=== PATIENT | female | born 1985 | race Caucasian/White ===

== ENCOUNTER 2017-04-16 19:00 | Emergency (ER) | payer MEDICAID ==
[~2017-04-16] VITALS: Ht 167.6 cm; Wt 44.0 kg
[2017-04-16 19:05] VITALS: Ht 167.6 cm; Wt 44.0 kg
[2017-04-16] MEDS ORDERED: ONDANSETRON (ODT) 4 MG TAB ODT STA (19:31)
--- NOTE | 2017-04-16 19:31 | ERD ---
ER Documentation Chief Complaint Date/Time DATE: 04/16/17 TIME: 19:23 Chief Complaint weakness today after being in sun. "felt like passing out" HPI 31-year-old female presents emergency department for multiple complaints including weakness, nausea and vomiting, feels like passing out. Stated that she was at [email or web address], when she felt like she is going to pass out, vomited nonbilious and nonbloody vomitus 3 times. Went home after this for a few minutes then went to an urgent care and she was told to come to the emergency department for reevaluation. Stated that she just got a new job and is still adjusting. Stated that she did not eat well this morning. She also added that mother advises her to come here to the emergency department for her blood sugar to be checked. Denies headache, loss of consciousness, dizziness, blurry vision, changes in vision, photophobia, facial pain, ear pain, throat pain, difficulty swallowing, neck pain, shoulder pain, chest pain, cough, shortness of breath and difficulty breathing when lying flat, hemoptysis, abdominal pain, back pain, loss of appetite, hematochezia, diarrhea, constipation, urinary symptoms, , the possibility of being , bladder and bowel incontinences, extremity tenderness, calf pain, numbness or tingling sensation, difficulty walking, recent travel, recent long travel, recent exposure to illness, recent antibiotic use in the last 3 months, fever, chills. Allergy: No known drug allergies. PMH: Factor V Leiden diagnosed in 2006. Pulmonary embolism 2. Stated she was previously on Coumadin, then her primary care physician stopped it. Family medical history: Denies. AO LMP: Irregular. Patient stated that she has an IUD. Medications: Surgery: Denies. Primary Social History: Denies family history of stroke, heart attack before age 50. Denies smoking cigarettes. Occasional drinks alcoholic beverages. Admits use of medical marijuana. Denies use of illegal drugs. ROS All systems reviewed and are negative except as per history of present illness. Medications Home Meds Active Scripts Meclizine Hcl* (Antivert*) 12.5 Mg Tab, 12.5 MG PO Q8 Y for DIZZINESS, #20 TAB Prov:OMA BAIG 04/16/17 Ondansetron Hcl* (Zofran*) 4 Mg Tablet, 4 MG PO Q8H Y for NAUSEA AND/OR VOMITING , #15 TAB Prov:OMA BAIG 04/16/17 Allergies Allergies: Coded Allergies: No Known Allergy (Unverified , 04/16/17) PMhx/Soc Medical and Surgical Hx: pt denies Medical Hx, pt denies Surgical Hx History of Surgery: No Anesthesia Reaction: No Hx Neurological Disorder: No Hx Respiratory Disorders: No Hx Cardiac Disorders: No Hx Psychiatric Problems: No Hx Miscellaneous Medical Probl: No Hx Alcohol Use: Yes (SOCIALLY) Hx Substance Use: Yes (RARE MARIJUANA) Hx Tobacco Use: No Smoking Status: Never smoker Physical Exam Vitals Vital Signs Date Time Temp Pulse Resp B/P Pulse Ox O2 Delivery O2 Flow Rate FiO2 04/16/17 20:03 56 18 105/58 100 Room Air 71 115/72 78 107/71 04/16/17 19:05 97.0 78 18 127/70 99 Physical Exam CONSTITUTIONAL: Well-appearing; well-nourished; in no apparent distress. HEAD: Normocephalic; atraumatic. EYES: Conjunctiva clear, sclera non-icteric, EOM intact. PERRL Ears: Hearing intact. EACs clear, TMs non-bulging, non-inflamed, translucent & mobile, ossicles normal appearance, No obstructions, no erythema, no discharges Nose: No obstructions. No polyps. No external lesions. Mucosa non-inflamed. No external lesions, septum and turbinates normal. No rhinorrhea. No discharges. Frontal sinus is non-tender to palpation. Maxillary sinus is non-tender to palpation. MOUTH: Moist mucous membranes, no lesion, no obstructions, no vesicles, no thrush, patent airway Throat: Uvula in midline. Right tonsil is +1 with no erythema, no exudate. Left tonsil is +1 with no erythema, no exudate. Tolerating secretions well. Good gag reflex. Patent airway. Neck: Supple, without lesions, bruits, or adenopathy. No mass. Thyroid non- enlarged and non-tender to palpation. CHEST: Symmetrical chest. Respirations even and not labored. No retractions noted. CARDIOVASCULAR: Normal S1, S2. RRR. No murmurs, gallops. RESPIRATORY: Normal chest excursion with respiration; breath sounds clear and equal bilaterally; no wheezes, rhonchi, or rales. Breathing even and unlabored. Speaking in clear, full, and complete sentences w/ ease. ABDOMEN: Normal bowel sounds normal. Soft, round, non-distended, non-guarding, no tenderness, no rebound, no organomegaly, no masses, no pulsating abdominal mass. No hernia. No peritoneal signs. : No CVA tenderness. BACK: Symmetrical shoulder. Spine is midline without deformity, tenderness. No evidence of trauma or deformity. PELVIS: Stable pelvis. No evidence of trauma or deformity. MUSCULOSKELETAL: Normal gait and station. No misalignment, asymmetry, crepitation, defects, tenderness, masses, effusions, decreased range of motion, instability, atrophy or abnormal strength or tone in the head, neck, spine, ribs , pelvis or extremities. No calf tenderness. Negative Homans' sign bilaterally. NEUROVASCULAR: Distal pulses are present. Pedal pulse are present, equal, and normal. Capillary refills are < 2 seconds. No neurovascular deficits. NEUROLOGIC: Alert and oriented x4. Speaks full and clear sentences. Cranial Nerves II-XII normal. Sensation to pain, touch, and proprioception normal. Grossly unremarkable. No neurologic deficits. Romberg test is negative. PSYCHOLOGICAL: The patients mood and manner are appropriate. No hallucinations , delusions. Not SI. Not HI. Has the capacity to decide for self SKIN: Normal for age and ethnicity; warm; dry; good turgor; no apparent lesions or exudates. No rashes, hives, discoloration. Intact. No skin tenting. No signs of dehydration. Result Diagram: 04/16/17201404/16/172014 Results 24 hrs Laboratory Tests Test 04/16/17 19:56 04/16/17 20:04 04/16/17 20:15 Bedside Glucose 97mg/dL Bedside Urine pH (LAB) 6.0 Bedside Urine Protein (LAB) 1+ Bedside Urine Glucose (UA) Negative Bedside Urine Ketones (LAB) 3+ Bedside Urine Blood 1+ Bedside Urine Nitrite (LAB) Negative Bedside Urine Leukocyte Esterase (L Negative White Blood Count 12.510^3/ul Red Blood Count 4.4610^6/ul Hemoglobin 14.5g/dl Hematocrit 41.7% Mean Corpuscular Volume 93.5fl Mean Corpuscular Hemoglobin 32.5pg Mean Corpuscular Hemoglobin Concent 34.8g/dl Red Cell Distribution Width 11.9% Platelet Count 23848^3/UL Mean Platelet Volume 11.5fl Neutrophils % 86.2% Lymphocytes % 10.2% Monocytes % 2.8% Eosinophils % 0.2% Basophils % 0.3% Nucleated Red Blood Cells % 0.0/100WBC Neutrophils # (Manual) 1110^3/ul Lymphocytes # 1.310^3/ul Monocytes # 0.410^3/ul Eosinophils # 0.010^3/ul Basophils # 0.010^3/ul Nucleated Red Blood Cells # 0.010^3/ul Prothrombin Time 14.2Sec Prothrombin Time Ratio 1.1 INR International Normalized Ratio 1.10 Activated Partial Thromboplast Time 27.0Sec Sodium Level 140mmol/L Potassium Level 3.5mmol/L Chloride Level 100mmol/L Carbon Dioxide Level 27mmol/L Anion Gap 17 Blood Urea Nitrogen 12mg/dl Creatinine 0.68mg/dl Glucose Level 98mg/dl Calcium Level 9.8mg/dl Total Bilirubin 0.6mg/dl Direct Bilirubin 0.00mg/dl Indirect Bilirubin 0.6mg/dl Aspartate Amino Transf (AST/SGOT) 27IU/L Alanine Aminotransferase (ALT/SGPT) 34IU/L Alkaline Phosphatase 52IU/L Troponin I < 0.012ng/ml Total Protein 8.2g/dl Albumin 4.9g/dl Globulin 3.30g/dl Albumin/Globulin Ratio 1.48 Current Medications Medications (Trade) Dose Ordered Sig/Pepper Route PRN Reason Start Time Stop Time Status Last Admin Dose Admin Ondansetron HCl 4 mg 4 mg ONCE STAT ODT 04/16/17 19:31 04/16/17 19:34 DC 04/16/17 20:12 Sodium Chloride (NS) 1,000 ml @ 1,000 mls/hr Q1H ONCE IV 04/16/17 21:30 04/16/17 22:29 DC 04/16/17 21:48 Procedures/MDM Examination: Please see physical examination. Disease process, medical treatment was explained to the patient and family member. They verbalized understanding and agreed with the diagnostic tests, medical treatment, and follow-up care. EKG: Normal sinus rhythm with a ventricular rate of 61 bpm. No evidence of acute myocardial infarction. No evidence of ischemia. Blood works: Reviewed. POC urine : Negative. POC urine dip: Reviewed. Treatment: IV insertion. Normal saline IV bolus 1 L. Re-evaluation: Denies headache, dizziness, blurry vision, neck pain, shoulder pain, chest pain, back pain, abdominal pain, nausea, vomiting. No episode of emesis in the emergency department. Alert and oriented 4. Speaks full and clear sentences. Respirations even and unlabored. Lung sounds clear to auscultation. Active bowel sounds. There is no right upper/right lower/ epigastric/left upper/left lower abdominal tenderness and light and deep palpation. Negative on Rovsings sign. Negative Rosa Isela sign. Able to jump 5 times without developing right-sided abdominal pain. No peritoneal signs. Ambulatory with steady gait. No neurovascular deficits. No neurological deficits. Consultation: Case was discussed with supervising emergency room physician, Dr. Tom Grant who agreed in my medical decision making to discharge the patient with a final diagnosis of dehydration. Differential diagnosis: Syncopal episode versus dehydration Medical decision makin-year-old female presents emergency department for multiple complaints including weakness, nausea and vomiting, feels like passing out. Stated that she was at [email or web address], when she felt like she is going to pass out, vomited nonbilious and nonbloody vomitus 3 times. Went home after this for a few minutes then went to an urgent care and she was told to come to the emergency department for reevaluation. Stated that she just got a new job and is still adjusting. Stated that she did not eat well this morning. She also added that mother advises her to come here to the emergency department for her blood sugar to be checked. Patient's complaint, patient's history about her complaint, my physical findings, diagnostic test results, my reevaluation are consistent my final diagnosis of dehydration. Medications prescribed are the following: Zofran. Meclizine. Patient and family member are made aware of the side effects and adverse reactions of the medications prescribed. Instructed on when to seek emergent and medical attention in case allergic/anaphylactic reactions or severe side effects and or adverse reactions to medications. Patient and family member verbalized understanding. Patient instructed Instructed to follow-up with his PCP in 24-48 hours. Instructed to Call 911 for chest pain, shortness of breath. Advised to come back here in ED as soon as possible for severity of symptoms which includes but not limited to: any new symptoms; shortness of breath/difficulty of breathing; cardiovascular changes; severe gastrointestinal symptoms; signs and symptoms of bleeding and or infection; signs of compartment syndrome/neurovascular changes; neurological changes/deficits. Patient and family member verbalized understanding. Upon discharge, patient is alert and oriented x 4, speaks full and clear sentences, denies pain, has no neurological deficits, has no neurovascular deficits, difficulty of breathing. Breathing even and unlabored. Lung sounds are clear to auscultation. Not in distress. Appears comfortable. Ambulatory with steady gait. Appears satisfied with care provided here in ED. Departure Diagnosis: Primary Impression: Dehydration Condition: Stable Additional Instructions: Instructed to follow-up with his PCP in 24-48 hours. Instructed to Call 911 for chest pain, shortness of breath. Advised to come back here in ED as soon as possible for severity of symptoms which includes but not limited to: any new symptoms; shortness of breath/difficulty of breathing; cardiovascular changes; severe gastrointestinal symptoms; signs and symptoms of bleeding and or infection; signs of compartment syndrome/neurovascular changes; neurological changes/deficits. Patient and family member verbalized understanding. OMA BAIG Apr 16, 2017 19:31
[2017-04-16 19:58] LABS: URINE BLOOD (Dip) POC 1+ (NEGATIVE)
[2017-04-16 20:03] VITALS: BP 107/71; PULSE 78; RESP 18
[2017-04-16 20:37] LABS: BASOPHILS % 0.3 % (0.0-2.0); EOSINOPHILS % 0.2 % (0.0-7.0); HEMATOCRIT 41.7 % (37.0-47.0); HEMOGLOBIN 14.5 g/dl (12.0-16.0); LYMPHOCYTES # 1.3 10^3/ul (0.8-2.9); LYMPHOCYTES % 10.2 % (15.0-51.0); MEAN CORPUSCULAR HEMOGLOBIN 32.5 pg (29.0-33.0); MEAN CORPUSCULAR HGB CONC 34.8 g/dl (32.0-37.0); MEAN CORPUSCULAR VOLUME 93.5 fl (82.0-101.0); MEAN PLATELET VOLUME 11.5 fl (7.4-10.4); MONOCYTE # 0.4 10^3/ul (0.3-0.9); MONOCYTES % 2.8 % (0.0-11.0); NEUTROPHILS % 86.2 % (39.0-77.0); PLATELET COUNT 287 10^3/UL (140-415); RED BLOOD COUNT 4.46 10^6/ul (4.20-5.40); RED CELL DISTRIBUTION WIDTH 11.9 % (11.5-14.5); WHITE BLOOD COUNT 12.5 10^3/ul (4.8-10.8)
[2017-04-16 20:57] LABS: INR 1.1; PROTIME 14.2 Sec (12.2-14.2); PT RATIO 1.1
[2017-04-16 21:02] LABS: ALANINE AMINOTRANSFERASE 34 IU/L (13-69); ALBUMIN 4.9 g/dl (3.3-4.9); ALBUMIN/GLOBULIN RATIO 1.48; ALKALINE PHOSPHATASE 52 IU/L (42-121); ANION GAP 17 (8-16); ASPARTATE AMINO TRANSFERASE 27 IU/L (15-46); BILIRUBIN,INDIRECT 0.6 mg/dl (0-1.1); BILIRUBIN,TOTAL 0.6 mg/dl (0.2-1.3); BLOOD UREA NITROGEN 12 mg/dl (7-20); CALCIUM 9.8 mg/dl (8.4-10.2); CARBON DIOXIDE 27 mmol/L (21-31); CHLORIDE 100 mmol/L (97-110); CREATININE 0.68 mg/dl (0.44-1.00); GLUCOSE 98 mg/dl (70-220); POTASSIUM 3.5 mmol/L (3.5-5.1); SODIUM 140 mmol/L (135-144); TOTAL PROTEIN 8.2 g/dl (6.1-8.1)
[2017-04-16 21:14] LABS: TROPONIN-I < 0.012 ng/ml (0.00-0.12)
[2017-04-16] MEDS ORDERED: SOD CHLORIDE 0.9% 1,000 ML IV ONE (21:30)
[2017-04-16] MEDS ORDERED: ONDA4TAB8 PO (22:20)
[2017-04-16] MEDS ORDERED: MECL12.574 PO (22:21)
== END 2017-04-16 22:49 | disposition home or self-care (01) ==
LOC: FTE 19:00
DX: E86.0 Dehydration (principal); R11.2 Nausea with vomiting, unspecified
CPT/HCPCS: 80053; 81003; 82962; 84484; 85025; 85610; 85730; 93005; J7030; Z7502; Z7610

== ENCOUNTER 2019-04-01 12:01 | Emergency (ER) | payer MEDICAID, OTHER ==
[~2019-04-01] VITALS: Ht 165.1 cm; Wt 45.9 kg
[~2019-04-01 12:01] MED LIST: ACYC800T5 PO; MECL12.574 PO; METR-121 PO; ONDA4TAB8 PO
[2019-04-01 12:15] VITALS: Ht 165.1 cm; Wt 45.9 kg
--- NOTE | 2019-04-01 13:06 | ERD ---
ER Documentation Chief Complaint Chief Complaint GENITAL PAIN HPI This is a 33-year-old female patient who presents to the emergency room with concern of STD exposure after having consensual unprotected intercourse 3 days ago. States pain in vaginal area started as irritation and she thought she may have a UTI, however pain increased with itchiness so she started using Monistat [id number] vaginal cream thinking she may have yeast infection, then yesterday developed multiple sores on her cranium. Patient denies fever, malaise, no nausea, no vomiting, no abdominal pain, no vaginal bleeding, no dysuria. States LMP is 1/2 months ago as she has IUD. Medical history includes recent abnormal Pap with + HPV. ROS All systems reviewed and are negative except as per history of present illness. Medications Home Meds Active Scripts Acyclovir* (Zovirax*) 800 Mg Tablet, 400 MG PO TID for 7 Days, #21 TAB Prov:TYRELL SANCHEZ NP 04/01/19 Meclizine Hcl* (Antivert*) 12.5 Mg Tab, 12.5 MG PO Q8 PRN for DIZZINESS, #20 TAB Prov:OMA BAIG F 04/16/17 Ondansetron Hcl* (Zofran*) 4 Mg Tablet, 4 MG PO Q8H PRN for NAUSEA AND/OR VOMITING, #15 TAB Prov:ZBIGNIEWILABANMYKEAR F 04/16/17 Allergies Allergies: Coded Allergies: No Known Allergy (Unverified , 04/16/17) PMhx/Soc Medical and Surgical Hx: pt denies Medical Hx, pt denies Surgical Hx History of Surgery: No Anesthesia Reaction: No Hx Neurological Disorder: No Hx Respiratory Disorders: No Hx Cardiac Disorders: No Hx Psychiatric Problems: No Hx Miscellaneous Medical Probl: No Hx Alcohol Use: Yes (SOCIALLY) Hx Substance Use: Yes (RARE MARIJUANA) Hx Tobacco Use: No Smoking Status: Never smoker Physical Exam Vitals Vital Signs Date Temp Pulse Resp B/P (MAP) Pulse Ox O2 O2 Flow FiO2 Time Delivery Rate 04/01/19 98.3 77 16 102/64 98 Room Air 15:50 (77) 04/01/19 99.4 83 20 99/64 (76) 98 12:15 Physical Exam Const: No acute distress Head: Atraumatic Eyes: Normal Conjunctiva, PERRL ENT: Normal External Ears, Nose and Mouth. Pharynx pink, moist, no lesions, no exudate. Neck: Full range of motion. No meningismus. No lymphadenopathy Resp: Clear to auscultation bilaterally Cardio: Regular rate and rhythm, no murmurs Abd: Soft, non tender, non distended. Normal bowel sounds Skin: No petechiae or rashes Back: No midline or flank tenderness, no CVT Ext: No cyanosis, or edema Neur: Awake and alert Psych: Normal Mood and Affect Results 24 hrs Laboratory Tests Test 04/01/19 13:13 04/01/19 13:20 Hepatitis B Surface Antigen NEGATIVE HIV (1&2) Antibody NEGATIVE Urine Color YELLOW Urine Clarity SLIGHTLY CLOUDY Urine pH 5.0 Urine Specific [place] 1.013 Urine Ketones NEGATIVE mg/dL Urine Nitrite NEGATIVE mg/dL Urine Bilirubin NEGATIVE mg/dL Urine Urobilinogen NEGATIVE mg/dL Urine Leukocyte Esterase 2+ Lionel/ul Urine Microscopic RBC 5 /HPF Urine Microscopic WBC 15 /HPF Urine Squamous Epithelial Cells FEW /HPF Urine Mucus FEW /HPF Urine Hemoglobin NEGATIVE mg/dL Urine Glucose NEGATIVE mg/dL Urine Total Protein NEGATIVE mg/dl Urine Test NEGATIVE Chlamydia trachomatis RNA (TMA) NOT DETECTED Chlamydia/GC Comment SEE NOTE Neisseria gonorrhoeae RNA (TMA) NOT DETECTED Current Medications Medications Dose Sig/Pepper Start Time Status Last (Trade) Ordered Route PRN Stop Time Admin Dose Reason Admin Ceftriaxone 250 mg ONCE ONCE 04/01/19 DC 04/01/19 Sodium IM 13:30 04/01/19 13:25 (Rocephin) 13:31 1,000 mg ONCE ONCE 04/01/19 DC 04/01/19 Azithromycin PO 13:30 04/01/19 13:25 (Zithromax) 13:31 Procedures/MDM PROCEDURES/MDM PROCEDURES: Pelvic Exam: Health Plan Manager present Abdomen: Nontender External Genitalia: circular, macular, honey crusted, discrete lesions on labia majora and vaginal centeno, no abrasions, no bruising, no lacerations Speculum: Normal vaginal mucosa, thick yellow-green discharge. Thick Monistat cream present requiring removal via large cotton swabs prior to sample collection and evaluation of vagina. Bimanual: No adnexal masses or tenderness, No CMT LAB INTERPRETATION: GC/CT, syphilis, vag culture pending [place]: negative for yeast, trich, clue cells, wbc HepB neg, HIV neg UA: +leuk, +WBC, neg preg -Medications: Rocephin, azithromycin Patient tolerated medication well with no adverse reactions. Patient reported improvement in pain. MDM: This is a 33 yo female patient who presents with concern for eruption of genital lesions yesterday after having consensual unprotected sex 3 days ago. She began experiencing vaginal itching 2 days ago and has been self-treating with Monistat. 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 Requesting repeated testing today. GC/CT and syphilis testing pending results. Patient has been empirically covered with abx treatment today. Wet mount did not show yeast and vaginal exam did not reveal red irritated vagina to indicate yeast infection, patient was instructed to stop use of Monistat. Present lesions suggestive of herpes genitalis as patient descries lesions as burning and itching as well as honey- crusted vesicular lesions. She will be treated with Acyclovir. Treatment of +leuks in urine has been deferred to repeat urinalysis by PMD due to Rocephin injection and presence of large amount of Monistat which may have created contaminated sample. Pt instructed to return immediately with back pain, dysuria, fever. DISPOSITION and PLAN: RX: Acyclovir The patient has been discharge home to follow-up with community physician. Departure Diagnosis: Primary Impression: Herpes genitalis in women Condition: Stable TYRELL SANCHEZ NP Apr 01, 2019 13:06
[2019-04-01] MEDS ORDERED: CEFTRIAXONE 250 MG INJ IM ONE (13:30)
[2019-04-01] MEDS ORDERED: AZITHROMYCIN 500 MG TAB PO ONE (13:30)
[2019-04-01 15:50] VITALS: BP 102/64; PULSE 77; RESP 16
== END 2019-04-01 15:50 | disposition home or self-care (01) ==
LOC: FTE 12:01
DX: A60.09 Herpesviral infection of other urogenital tract (principal)
CPT/HCPCS: 81001; 84703; 86703; 86780; 87081; 87210; 87340; 87591; 96372; J0696; Z7502; Z7610